=== PATIENT | female | born 2000 | race Hispanic/Latino ===

== ENCOUNTER 2023-03-31 11:14 | Outpatient (CLI) | payer OTHER | END 2023-03-31 11:15 | disposition home or self-care (01) | LOC: CSHULT 11:14 | PROVIDERS: ATTEND Nurse Practitioner Women's Health | DX: Z34.03 Encounter for supervision of normal first pregnancy, third trimester (principal); Z3A.31 31 weeks gestation of pregnancy | CPT/HCPCS: 76805 ==